=== PATIENT | male | born 1960 | race Caucasian/White ===

== ENCOUNTER 2017-03-06 15:22 | Emergency (ER) | payer MEDICARE, MEDICAID ==
--- NOTE | ~2017-03-06 | ER ---
ADMIT: 03/06/2017 RM/LOC: ER [facility] MR#: [id number] [address] [id number] [address] [address] [place] [address] Emergency Room Report SEX: M AGE: 57 : 1960 DATE: 03/06/2017 ADDENDUM: A 57-year-old white male who is homebound, bed bound from a severe traumatic brain injury, coming in because they thought he was a little bit short of breath. Chest x-ray reveals he has a little bit of a right pleural effusion, but he has had that before and is actually still better than what he has. He is always on oxygen. He has no fever, nausea, vomiting, or cough. CBC and chemistry looked okay. He is on phenobarb and Dilantin. Those levels were acceptable. We are going to discharge him back home. He will need to go by ambulance because he is bed bound, and he will follow up with Dr. Hollins as usual. CONDITION ON DISCHARGE: Good. Laureano Ortiz MD/ pati JOB #: [id number] CC: Laureano Ortiz MD, Attending Physician Leon Hollins MD, Family Physician
[~2017-03-06 15:22] MED LIST: DILANTIN DPS100 MG PO; LASIX DPS20 MG PO; LEVOTHYROXINE50 MCG PO; MYCOSTATIN PWD15 GM TP; PEPCID DPS20 MG PO; PHENOBARB32.4 MG PO; PLAVIX75 MG PO; POTASSIUM99 M1 PO
== END 2017-03-06 19:20 | disposition home or self-care (01) ==
LOC: ER 15:22
DX: J90 Pleural effusion, not elsewhere classified (principal); G40.909 Epilepsy, unspecified, not intractable, without status epilepticus; E03.9 Hypothyroidism, unspecified; Z87.820 Personal history of traumatic brain injury; Z86.2 Personal history of diseases of the blood and blood-forming organs and certain disorders involving the immune mechanism; Z98.2 Presence of cerebrospinal fluid drainage device; Z88.0 Allergy status to penicillin; Z91.040 Latex allergy status; Z79.01 Long term (current) use of anticoagulants; Z79.899 Other long term (current) drug therapy